=== PATIENT | male | born 1960 | race Caucasian/White ===

== ENCOUNTER 2019-04-12 12:38 | Emergency (ER) | payer OTHER ==
[2019-04-12 13:11] VITALS: BP 145/79
--- NOTE | 2019-04-12 14:04 | UC ---
Ear Complaint HPI - HPI Summary HPI Summary: Pt presents with c/o right ear pain and has concern for cerumen impaction as he has hx of that. Pt also states he has right side jaw pain that radiates to right ear. Denies recent dental work . States that he sees his dentist regularly every 6 months. - History of Current Complaint Chief Complaint: UCEar Stated Complaint: RT EAR PAIN Time Seen by Provider: 04/12/19 13:24 Hx Obtained From: Patient Onset/Duration: Gradual Onset, Lasting Days, Still Present Severity Initially: Mild Severity Currently: Moderate Pain Intensity: 5 Associated Signs/Symptoms: Positive: Hearing Loss - Allergies/Home Medications Allergies/Adverse Reactions: Allergies Allergy/AdvReac Type Severity Reaction Status Date / Time No Known Allergies Allergy Verified 04/12/19 13:00 Home Medications: Home Medications Ibuprofen TAB* [Advil TAB*] 200 mg PO ONCE PRN 04/12/19 [History Confirmed 04/12] Ibuprofen TAB* [Motrin TAB* 600 MG] 600 mg PO Q6H PRN 04/12/19 [History Confirmed 04/12/19] PMH/Surg Hx/FS Hx/Imm Hx Previously Healthy: Yes - Surgical History Surgical History: None - Family History Known Family History: Positive: Cardiac Disease - Social History Occupation: Employed Full-time Lives: With Family Alcohol Use: Rare Substance Use Type: Excessive Caffeine Smoking Status (MU): Light Every Day Tobacco Smoker Have You Smoked in the Last Year: No Review of Systems All Other Systems Reviewed And Are Negative: Yes Constitutional: Positive: Negative Skin: Positive: Negative Eyes: Positive: Negative ENT: Positive: Dental Pain, Ear Ache - right Respiratory: Positive: Negative Cardiovascular: Positive: Negative Gastrointestinal: Positive: Negative Genitourinary: Positive: Negative Motor: Positive: Negative Neurovascular: Positive: Negative Musculoskeletal: Positive: Negative Neurological: Positive: Negative Psychological: Positive: Negative Is Patient Immunocompromised?: No Physical Exam Triage Information Reviewed: Yes Appearance: Well-Appearing Vital Signs: Initial Vital Signs Temp 98.1 F 04/12/19 13:04 Pulse 68 04/12/19 13:04 Resp 22 04/12/19 13:04 BP 145/79 04/12/19 13:04 Pulse Ox 100 04/12/19 13:04 Vital Signs Reviewed: Yes Eye Exam: Normal ENT Exam: Normal ENT: Positive: Other - unable to clearly asses right ear canal due to large amount of ear hair. Dental Exam: Other - white patch on right lower jaw posterior of last molar. Additionally, white raised no removable patches on inner right cheek. Pt stated that he bit his cheek last week. The white area more concerning for leukoplakia but possibly just insulted skin from biting cheek. Pt states he has pain along right lower jaw. No lymphadenopathy appreciated Ear Complaint Course/Dx - Differential Dx/Diagnosis Differential Diagnosis/HQI/PQRI: Cerumen Impaction, Other - canker sores, thrush , leukoplakia Provider Diagnosis: Ear ache, Oral mucosal lesion Discharge ED - Sign-Out/Discharge Documenting (check all that apply): Patient Departure All imaging exams completed and their final reports reviewed: No Studies - Discharge Plan Condition: Stable Disposition: HOME Patient Education Materials: Earache (ED), Toothache (ED) Referrals: Darryn Sherman MD [Primary Care Provider] - If Needed Additional Instructions: Please follow up with your PCP and dental care provider as soon as possible. - Billing Disposition and Condition Condition: STABLE Disposition: Home
== END 2019-04-12 14:25 | disposition home or self-care (01) ==
LOC: UCCORT 12:38
DX: H92.01 Otalgia, right ear (principal); K13.79 Other lesions of oral mucosa; K08.89 Other specified disorders of teeth and supporting structures; F17.290 Nicotine dependence, other tobacco product, uncomplicated
CPT/HCPCS: 99202; G0463